=== PATIENT | female | born 1970 | race Caucasian/White ===

== ENCOUNTER 2018-01-25 13:58 | Emergency (ER) | payer MEDICAID ==
[2018-01-25 14:28] LABS: PLATELET COUNT 621 10^3/uL (150-400)
--- NOTE | 2018-01-25 14:33 | EDPHY ---
H & P Stated Complaint: epigastic pain since last night Time Seen by Provider: 01/25/18 14:18 HPI/ROS: CHIEF COMPLAINT: Chest wall pain HISTORY OF PRESENT ILLNESS: The patient presents to the ED from her pain clinic with complaints of sternal chest pain that began yesterday. The patient was referred to the emergency department for her ongoing symptoms. The patient complains of reproducible sternal pain. She denies any history of fall or trauma. She denies any abdominal pain. The patient denies any history of asymmetric calf pain or swelling. She is currently anticoagulated for thromboembolic disease. REVIEW OF SYSTEMS: A comprehensive 10 point review of systems is otherwise negative aside from elements mentioned in the history of present illness. Source: Patient Exam Limitations: No limitations - Personal History LMP (Females 10-55): Unknown - Medical/Surgical History Hx Asthma: No Hx Chronic Respiratory Disease: Yes Hx Diabetes: No Hx Cardiac Disease: No Hx Renal Disease: No Hx Cirrhosis: No Hx Alcoholism: No Hx HIV/AIDS: No Hx Splenectomy or Spleen Trauma: No Other PMH: COPD home o2, bipolar, htn, chronic pain, chronic abd pain, PE - Social History Smoking Status: Former smoker - Physical Exam Exam: General Appearance: Alert, no distress Eyes: Pupils equal and round no pallor or injection ENT, Mouth: Mucous membranes moist Respiratory: There are no retractions, lungs are clear to auscultation Cardiovascular: Tenderness to palpation anterior chest pain Gastrointestinal: Abdomen is soft and nontender, no masses, bowel sounds normal Neuro: GCS 15, 5/5 strength all 4 extremities Skin: Warm and dry, no rashes Musculoskeletal: Neck is supple nontender Extremities: symmetrical, full range of motion Psychiatric: Patient is oriented X 3, there is no agitation Constitutional: Initial Vital Signs Temperature (C) 36.9 C 01/25/18 14:16 Heart Rate 81 01/25/18 14:16 Respiratory Rate 18 01/25/18 14:16 Blood Pressure 158/95 H 01/25/18 14:16 O2 Sat (%) 98 01/25/18 14:16 O2 Delivery Mode Nasal Cannula O2 (L/minute) 3 Allergies/Adverse Reactions: cephalexin [From Keflex] Allergy (Verified 01/25/18 14:08) chlordiazepoxide [From Librax (with clidinium)] Allergy (Verified 01/25/18 14:08 ) clidinium [From Librax (with clidinium)] Allergy (Verified 01/25/18 14:08) hydroxyzine [From Vistaril] Allergy (Verified 01/25/18 14:07) oxycodone [From OxyContin] Allergy (Verified 01/25/18 14:08) Penicillins Allergy (Verified 01/25/18 14:08) prochlorperazine [From Compazine] Allergy (Verified 01/25/18 14:07) sumatriptan [From Imitrex] Allergy (Verified 01/25/18 14:07) Home Medications: Medication Instructions Recorded Amitiza 01/25/18 Atorvastatin Calcium 01/25/18 Carvedilol 01/25/18 Cyclobenzaprine 01/25/18 Dicyclomine 01/25/18 Gralise 01/25/18 KETOROLAC TROMETHAMINE 01/25/18 Nucynta 01/25/18 OLANZapine 01/25/18 Omeprazole 01/25/18 Oxybutynin 01/25/18 Pepcid 01/25/18 Phenergan 01/25/18 Prazosin HCl 01/25/18 Sucralfate 01/25/18 Xarelto 01/25/18 Zofran 01/25/18 lamoTRIgine 01/25/18 Medical Decision Making - Diagnostics EKG Interpretation: EKG: Complete interpretation has been separately recorded in the [facility] archive. Summary impression: Sinus rhythm, nonspecific T-wave changes noted Imaging Results: Imaging Impressions Abdomen Ultrasound 01/25/18 14:40 Impression: Limited study. Fatty liver. Findings and recommendations discussed with Loco Kamara at 1511 hour, 01/25. ED Course/Re-evaluation: The patient presents to the ED for evaluation of sternal discomfort. The the patient is hemodynamically stable upon arrival. She does have a history of chronic abdominal pain. I find the patient's abdominal examination to be benign. Workup in the emergency department demonstrates a nonischemic EKG and normal troponin. Patient has nonspecific abnormalities noted of some her GI labs. These are chronic upon review of her [facility] EHR. Right upper quadrant ultrasound demonstrates no evidence of cholelithiasis or cholecystitis. At this point time I re-evaluated the patient at 4:00 p.m. and she is neurologically intact and her abdominal examination is reassuring. At this point time I see no evidence of acute coronary syndrome. She is anticoagulated and I doubt pulmonary embolism. There is nothing to suggest dissection. I do feel the patient can continue to follow up with her environmental designer at [facility] for further evaluation and management of her chronic abdominal pain and liver function test abnormalities. Differential Diagnosis: Differential diagnosis considered includes peptic ulcer disease, cholecystitis, gastroenteritis, costochondritis, esophageal spasm, pericarditis, myocarditis - Data Points Laboratory Results: Laboratory Results 01/25/18 13:58 01/25/18 13:58 01/25/18 01/25/18 13:58 13:58 WBC 14.01 10^3/uL H 10^3/uL (3.80-9.50) RBC 5.10 10^6/uL 10^6/uL (4.18-5.33) Hgb 12.1 g/dL L g/dL (12.6-16.3) Hct 38.6 % % (38.0-47.0) MCV 75.7 fL L fL (81.5-99.8) MCH 23.7 pg L pg (27.9-34.1) MCHC 31.3 g/dL L g/dL (32.4-36.7) RDW 17.4 % H % (11.5-15.2) Plt Count 621 10^3/uL H 10^3/uL (150-400) MPV 9.5 fL fL (8.7-11.7) Neut % (Auto) 68.9 % % (39.3-74.2) Lymph % (Auto) 24.2 % % (15.0-45.0) Irion % (Auto) 5.3 % % (4.5-13.0) Eos % (Auto) 0.6 % % (0.6-7.6) Baso % (Auto) 0.2 % L % (0.3-1.7) Nucleat RBC Rel Count 0.0 % % (0.0-0.2) Absolute Neuts (auto) 9.65 10^3/uL H 10^3/uL (1.70-6.50) Absolute Lymphs (auto) 3.39 10^3/uL H 10^3/uL (1.00-3.00) Absolute Monos (auto) 0.74 10^3/uL 10^3/uL (0.30-0.80) Absolute Eos (auto) 0.09 10^3/uL 10^3/uL (0.03-0.40) Absolute Basos (auto) 0.03 10^3/uL 10^3/uL (0.02-0.10) Absolute Nucleated RBC 0.00 10^3/uL 10^3/uL (0-0.01) Immature Gran % 0.8 % % (0.0-1.1) Immature Gran # 0.11 10^3/uL H 10^3/uL (0.00-0.10) Sodium 142 mEq/L mEq/L (135-145) Potassium 4.5 mEq/L mEq/L (3.3-5.0) Chloride 105 mEq/L mEq/L (97-110) Carbon Dioxide 27 mEq/l mEq/l (22-31) Anion Gap 10 mEq/L mEq/L (6-14) BUN 12 mg/dL mg/dL (7-23) Creatinine 0.6 mg/dL mg/dL (0.6-1.0) Estimated GFR > 60 Glucose 127 mg/dL H mg/dL (70-100) Calcium 10.1 mg/dL mg/dL (8.5-10.4) Total Bilirubin 0.3 mg/dL mg/dL (0.1-1.4) AST 24 IU/L IU/L (14-46) ALT 29 IU/L IU/L (9-52) Alkaline Phosphatase 193 IU/L H IU/L (38-126) Total Protein 8.3 g/dL H g/dL (6.3-8.2) Albumin 4.3 g/dL g/dL (3.5-5.0) Lipase 406 IU/L H IU/L (23-300) Departure - Departure Disposition: Home, Routine, Self-Care Clinical Impression: Chest wall pain Condition: Good Instructions: Chest Pain (ED) Additional Instructions: 1. Take Ibuprofen or Motrin 600 mg by mouth three times a day.
--- NOTE | 2018-01-25 15:09 | CPEKG ---
Test Reason : OPEN Blood Pressure : / mmHG Vent. Rate : 088 BPM Atrial Rate : 088 BPM P-R Int : 119 ms QRS Dur : 091 ms QT Int : 358 ms P-R-T Axes : 038 -33 009 degrees QTc Int : 434 ms Sinus rhythm Abnormal R-wave progression, early transition Left ventricular hypertrophy Borderline T abnormalities, anterior leads Confirmed by Loco Kamara ([id number]) on 01/25/2018 3:09:20 PM Referred By: Confirmed By:Loco Kamara
[2018-01-25 16:21] VITALS: BP 144/80
[2018-01-25] MEDS ORDERED: IBUPROFEN 600 MG TAB PO ONE (16:31)
== END 2018-01-25 16:34 | disposition home or self-care (01) ==
DX: R07.89 Other chest pain (principal); J44.9 Chronic obstructive pulmonary disease, unspecified; I10 Essential (primary) hypertension; Z87.891 Personal history of nicotine dependence; Z79.01 Long term (current) use of anticoagulants